=== PATIENT | male | born 1980 | race Caucasian/White ===

== ENCOUNTER 2019-05-15 11:27 | Emergency (ER) | payer OTHER, SELFPAY ==
--- NOTE | ~2019-05-15 | XR_ITS ---
EXAMINATION: XR chest 2V EXAM DATE: 05/15/2019 12:24 INDICATION: Cough and congestion. TECHNIQUE: Frontal and lateral projections of the chest obtained and reviewed. There is no prior anita dy for comparison. FINDINGS: The lungs are clear. There are no pleural effusions. The cardiomediastinal silhouette is within normal limits. There is no pneumothorax suspected. The bones and soft tissues are unremarkab le. IMPRESSION: No acute cardiopulmonary findings. Reviewed, dictated and finalized at location B. [facility] [employer]
[2019-05-15 11:57] VITALS: BP 154/96; PULSE 77; RESP 18; TEMP 36.9; O2SAT 98
--- NOTE | 2019-05-15 12:01 | ED.URI ---
HPI - URI/Sore Throat General Chief Complaint: Upper Respiratory Infection Stated Complaint: Cold/Flu Time Seen by Provider: 05/15/19 12:01 Source: patient and family History of Present Illness HPI Narrative: Patient presents with continued chest congestion. Patient states he has had his loose congested cough for the past 3 months. Patient states is been treated with antibiotics in steroids. Patient is worried that he might have pneumonia. Patient denies any shortness of breath no chest pain. Patient states he had asthma as a child and is a non-smoker. MD elicited complaint: cough Related Data Home Medications Medication Instructions Recorded Confirmed metoprolol succinate 100 mg PO DAILY 04/12/19 04/12/19 venlafaxine [Effexor XR] 75 mg PO DAILY 04/12/19 04/12/19 Allergies Allergy/AdvReac Type Severity Reaction Status Date / Time egg Allergy Unknown Unknown Verified 04/12/19 16:13 Review of Systems Review of Systems: Narrative: CONSTITUTIONAL: Denies fever, chills, or sweats. EYES: Denies visual changes, redness, or discharge. ENT: Denies sore throat, or otalgia. CARDIOVASCULAR: Denies chest pain, palpitations, or edema. RESPIRATORY: Denies dyspnea. Loose congested cough GASTROINTESTINAL: Denies abdominal pain, nausea, vomiting, or diarrhea. GENITOURINARY: Denies dysuria or hematuria. SKIN: Denies rash or itching. MUSCULOSKELETAL: Denies back pain, joint pain, or myalgia. NEUROLOGIC: Denies headache, numbness, or weakness. PSYCHIATRIC: Denies anxiety or depression. All systems reviewed & are unremarkable except as noted in HPI and below PMFSH Comments At time of signature, agree with nursing past medical, surgical, social and family history. There is no relevant family history pertinent to the presenting complaint Exam Narrative: Exam Narrative: GENERAL: Well-appearing, well-nourished, and in no acute distress. HEAD: Normocephalic, atraumatic. EYES: PERRLA and EOMI. ENT: Nares clear, no rhinorrhea or epistaxis. Mucous membranes moist. NECK: Supple. CHEST: Clear to auscultation. No respiratory distress. HEART: Regular rate and rhythm. No murmur heard. Normal peripheral pulses. ABDOMEN: Soft, nontender, nondistended, normal active bowel sounds. EXTREMITIES: Normal range of motion. No edema. SKIN: Warm, dry, no rash. NEURO: No focal deficits. Alert and oriented x3. Minnie Coma Scale Eye Opening: Spontaneous 4 [place] Coma Scale Motor: Obeys Commands 6 [place] Coma Scale Verbal: Oriented 5 Minnie Coma Scale Total 15 Course Vital Signs Vital signs: Vital Signs Temperature 36.9 C 05/15/19 11:57 Pulse Rate 77 05/15/19 11:57 Respiratory Rate 18 05/15/19 11:57 Blood Pressure 154/96 H 05/15/19 11:57 Pulse Oximetry 98 05/15/19 11:57 Temperature 36.9 C 05/15/19 11:57 Pulse Rate 77 05/15/19 11:57 Respiratory Rate 18 05/15/19 11:57 Blood Pressure 154/96 H 05/15/19 11:57 Pulse Oximetry 98 05/15/19 11:57 Please NATHALIE schedule a followup visit with your personal physician for further evaluation and treatment. Including recheck and discussion of your blood pressure. If your symptoms persist, change or worsen significantly before you can contact your personal physician then please, without delay, go to the emergency department for further evaluation MDM - URI/Sore Throat Differential Diagnosis Differential diagnosis: Likely upper respiratory infection, sinusitis and bronchitis Imaging Data Attestation: I personally reviewed and interpreted this imaging study as follows: My impression: No acute cardiopulmonary findings Radiologist's impression: No acute cardiopulmonary findings Critical Care Time Critical Care Time Critical Care Time: No Discharge Plan Discharge Clinical Impression: Bronchitis Upper respiratory infection Qualifiers: URI type: unspecified viral URI Qualified Code(s): J06.9 - Acute upper respiratory infection, unspecified Patient Disposition: Home,
== END 2019-05-15 12:45 | disposition home or self-care (01) ==
PROVIDERS: Emergency Provider Nurse Practitioner Family
DX: J40 Bronchitis, not specified as acute or chronic (principal); J06.9 Acute upper respiratory infection, unspecified
CPT/HCPCS: 71046; 99213; G0463

== ENCOUNTER 2020-05-22 08:17 | Emergency (ER) | payer OTHER, SELFPAY ==
[2020-05-22 08:50] VITALS: BP 120/82; PULSE 97; RESP 20; TEMP 36.9; O2SAT 97
--- NOTE | 2020-05-22 09:32 | ED.URI ---
HPI - URI/Sore Throat General Chief Complaint: Upper Respiratory Infection Stated Complaint: sore throat sinus diarrhea Time Seen by Provider: 05/22/20 09:32 Source: patient Mode of arrival: ambulatory Limitations: no limitations History of Present Illness HPI Narrative: Hugo Cruz is a 40 yo male with PMH of depression and HTN who comes to [facility] with complaints of sore throat that started last 2 to 3 days it is worsened he has a history of large tonsils and strep-states he is not been around people at work as he works by himself and wears a mask if anyone comes into his office Related Data Home Medications Medication Instructions Recorded Confirmed metoprolol succinate 100 mg PO DAILY 04/12/19 05/15/19 venlafaxine [Effexor XR] 75 mg PO DAILY 04/12/19 05/15/19 Allergies Allergy/AdvReac Type Severity Reaction Status Date / Time egg Allergy Unknown Unknown Verified 05/22/20 09:06 Review of Systems Review of Systems: Narrative: CONSTITUTIONAL: Denies fever, chills, sweats. EYES: Denies visual changes, redness, discharge. ENT: Denies rhinorrhea, mild congestion, has sore throat, otalgia. CARDIOVASCULAR: Denies chest pain, palpitations, edema. RESPIRATORY: Denies dyspnea, wheezing, cough GASTROINTESTINAL: Denies abdominal pain, nausea, vomiting, diarrhea. GENITOURINARY: Denies dysuria, hematuria, abnormal discharge SKIN: Denies rash or itching. NEUROLOGIC: Denies numbness, or focal weakness. PSYCHIATRIC: Denies anxiety or depression. PMFSH Past Medical History Medical History Depression Hypertension Family History Family History Other No acute medical problems Social History Social History (Updated 05/22/20 @ 09:35 by Courtney Lopez CNP) Smoking status: Never smoker Alcohol intake: current Comments At time of signature, I agree with nursing past medical, surgical, social and family history. There is no relevant family history pertinent to the presenting complaint. Exam Narrative: Exam Narrative: GENERAL: This is a well-nourished, well-developed patient, in mild distress. HEAD: normocephalic, atraumatic. EYES: Sclera clear/white. Vision is grossly intact. EARS: External ears normal, auditory canals clear and without drainage, TMs normal without perforation. Hearing grossly intact. NOSE: External nose normal with nasal discharge, nares without redness, no rhinorrhea. THROAT: Mucous membranes moist, posterior pharynx erythema with 2+ edema of tonsils NECK: Neck supple, non-tender CARDIOVASCULAR: Regular rate and rhythm without murmurs, gallops, or rubs. RESPIRATORY: Clear to auscultation. Breath sounds equal bilaterally. No wheezes, rales, or rhonchi. GASTROINTESTINAL: Abdomen soft, non-tender, SKIN: warm, intact with no suspicious lesions or rash, good texture and turgor. NEURO: awake, alert, and oriented to person, place and time. There were no obvious focal neurologic abnormalities. Steady gait EXTREMITIES: Normal range of motion. BACK: Nontender without deformity Course Course Emergency Course: Patient comes to express care with with sore throat and nasal congestion x3 days it is worsened over the last 2 days Strep test neg and Covid test neg Mucinex and prednisone for tonsils and general sinus drainage Patient given instructions on hydration Work excuse Vital Signs Vital signs: Vital Signs Temperature 98.5 F 05/22/20 08:50 Pulse Rate 97 05/22/20 08:50 Respiratory Rate 20 05/22/20 08:50 Blood Pressure 120/82 05/22/20 08:50 Pulse Oximetry 97 05/22/20 08:50 Temperature 98.5 F 05/22/20 08:50 Pulse Rate 97 05/22/20 08:50 Respiratory Rate 20 05/22/20 08:50 Blood Pressure 120/82 05/22/20 08:50 Pulse Oximetry 97 05/22/20 08:50 MDM - URI/Sore Throat Differential Diagnosis Differential diagnosis: Likely upper respiratory inf
== END 2020-05-22 09:55 | disposition home or self-care (01) ==
PROVIDERS: Emergency Provider Nurse Practitioner
DX: J02.9 Acute pharyngitis, unspecified (principal); Z20.822 Contact with and (suspected) exposure to COVID-19; I10 Essential (primary) hypertension; F32.9 Major depressive disorder, single episode, unspecified
CPT/HCPCS: 87081; 87426; 87880; 99213; C9803; G0463

== ENCOUNTER 2021-01-16 09:23 | Emergency (ER) | payer OTHER, SELFPAY ==
[2021-01-16 10:06] VITALS: BP 118/71; PULSE 68; RESP 14; TEMP 36.6; O2SAT 98
--- NOTE | 2021-01-16 10:52 | ED.URI ---
HPI - URI/Sore Throat General Chief Complaint: Upper Respiratory Infection Stated Complaint: runny nose and eye drainage Time Seen by Provider: 01/16/21 10:53 Source: patient, family, RN notes reviewed and old records reviewed Mode of arrival: ambulatory Limitations: no limitations History of Present Illness HPI Narrative: 40-year-old male presents to [facility] with 1 month duration of sinus pressure, congestion and drainage with symptoms increasing in the past week. Patient also has some crusting drainage to bilateral eyes which just started this morning. Patient denies any sore throat, ear pain, acute cough of any known fevers chills or sweats. Patient states that he has taken some OTC sinus medications with no improvement.Patient does have sleep apnea and wears C-PAP, He has not had COVID vaccinations. MD elicited complaint: rhinorrhea, nasal congestion, sinus pain and other (Sinus pressure forhead, bilateral eye redness with drainage) Pertinent past history: sinusitis and other (sleep apnea) Related Data Home Medications Medication Instructions Recorded Confirmed atorvastatin 20 mg PO DAILY 05/22/20 01/16/21 metformin 500 mg PO DAILY 05/22/20 01/16/21 metoprolol tartrate 100 mg PO DAILY 05/22/20 01/16/21 ergocalciferol (vitamin D2) 1,250 mcg PO WEEKLY 01/16/21 01/16/21 [Vitamin D2] hydrochlorothiazide 25 mg PO DAILY 01/16/21 01/16/21 venlafaxine [Effexor] 100 mg PO DAILY 01/16/21 01/16/21 vitamin B complex [B 1 tablet PO DAILY 01/16/21 01/16/21 Complex-Vitamin B12] Allergies Allergy/AdvReac Type Severity Reaction Status Date / Time No Known Allergies Allergy Verified 01/16/21 10:20 Review of Systems Review of Systems: CONSTITUTIONAL: Denies fever, chills, or sweats. EYES: Denies visual changes, positive for bilateral eye redness, or discharge. ENT: Positive rhinorrhea, congestion, no sore throat, or otalgia. CARDIOVASCULAR: Denies chest pain, palpitations, or edema. RESPIRATORY: Denies acute cough or dyspnea. GASTROINTESTINAL: Denies abdominal pain, nausea, vomiting, or diarrhea. GENITOURINARY: Denies dysuria or hematuria. SKIN: Denies rash or itching. MUSCULOSKELETAL: Denies back pain, joint pain, or myalgia. NEUROLOGIC: Positive for headache, no numbness, or weakness. PSYCHIATRIC: Positive history of anxiety or depression. All systems reviewed & are unremarkable except as noted in HPI and below PMFSH Past Medical History Medical History (Updated 01/19/21 @ 12:51 by Katie Martin NP) Bronchitis Depression Diabetes Elevated cholesterol GERD (gastroesophageal reflux disease) Hypertension VENESSA (obstructive sleep apnea) Sinusitis Surgical History Surgical History (Updated 01/16/21 @ 11:09 by Katie Martin NP) H/O sinus surgery History of lumbar fusion Family History Family History Other No acute medical problems Social History Social History (Updated 01/19/21 @ 12:51 by Katie Martin NP) Smoking status: Never smoker Alcohol intake: current Substance use: never Living arrangements: with family Gender identity (if verbalized by the patient): Male Comments At time of signature, agree with nursing past medical, surgical, social and family history. There is no relevant family history pertinent to the presenting complaint Exam Narrative: GENERAL: Well-appearing, well-nourished, and in no acute distress. HEAD: Normocephalic, atraumatic. EYES: PERRLA and EOMI.Bilateral conjunctiva redness with yellow crusting to eyelashes, denies pain or acute itching. ENT: Nares red and turbinates swollen, clear rhinorrhea no epistaxis,facial sinus pressure Mucous membranes moist.TM's normal with good light reflex, throat ith mild redness no lesions or exudates no tonsil enlargement post nasal drainage present. NECK: Supple.no lymphadenopathy CHEST: Clear to auscultation. No respiratory distress.dry cough SSAO2 98% on room air HEAR
== END 2021-01-16 11:20 | disposition home or self-care (01) ==
PROVIDERS: Emergency Provider Registered Nurse; PCP Family Medicine
DX: J01.90 Acute sinusitis, unspecified (principal); E11.9 Type 2 diabetes mellitus without complications; E78.00 Pure hypercholesterolemia, unspecified; K21.9 Gastro-esophageal reflux disease without esophagitis; I10 Essential (primary) hypertension; G47.33 Obstructive sleep apnea (adult) (pediatric); F32.9 Major depressive disorder, single episode, unspecified
CPT/HCPCS: 99213; G0463

== ENCOUNTER 2021-12-08 08:43 | Emergency (ER) | payer OTHER, SELFPAY ==
[2021-12-08 08:50] VITALS: BP 128/76; PULSE 68; RESP 20; TEMP 36.5; O2SAT 100
--- NOTE | 2021-12-08 09:14 | ED.DIZZY ---
HPI - Dizziness General Chief Complaint: Dizziness Stated Complaint: Dizziness Time Seen by Provider: 12/08/21 09:00 Source: patient Mode of arrival: ambulatory Limitations: no limitations History of Present Illness HPI Narrative: Mr. Cruz is a 41-year-old male patient presenting to the clinic today with complaints of dizziness. He reports that he has some discomfort to the back of his neck. He reports this been going on for about 3 to 4 days. States that he just feels unsteady on his feet. He denies any headache, chest pain or shortness of breath. Has a history of hypertension but his blood pressure is 128/76 in the clinic today. He is diabetic but his blood sugar was 125 at home. He denies any fever or chills. He denies any sore throat or nasal congestion. Related Data Home Medications Medication Instructions Recorded Confirmed atorvastatin 20 mg tablet 20 mg PO DAILY 05/22/20 12/08/21 metformin 500 mg tablet 500 mg PO DAILY 05/22/20 12/08/21 metoprolol tartrate 100 mg tablet 100 mg PO DAILY 05/22/20 12/08/21 ergocalciferol (vitamin D2) 1,250 1,250 mcg PO WEEKLY 01/16/21 12/08/21 mcg (50,000 unit) capsule (Vitamin D2) hydrochlorothiazide 25 mg tablet 25 mg PO DAILY 01/16/21 12/08/21 venlafaxine 100 mg tablet 100 mg PO DAILY 01/16/21 12/08/21 vitamin B complex (B 1 tablet PO DAILY 01/16/21 12/08/21 Complex-Vitamin B12 tablet) Allergies Allergy/AdvReac Type Severity Reaction Status Date / Time No Known Allergies Allergy Verified 12/08/21 09:03 Review of Systems Review of Systems: Pertinent positives per HPI. Patient denies any fever, chills, rash, headache, visual changes,cough, runny nose, sore throat, shortness of breath, chest pain, palpitations, nausea, vomiting, diarrhea, constipation, abdominal pain, or any urinary issues. [facility] Past Medical History Medical History Bronchitis Depression Diabetes Elevated cholesterol GERD (gastroesophageal reflux disease) Hypertension VENESSA (obstructive sleep apnea) Sinusitis Surgical History Surgical History H/O sinus surgery History of lumbar fusion Family History Family History Other No acute medical problems Social History Social History Smoking status: Never smoker Alcohol intake: current Substance use: never Gender identity (if verbalized by the patient): Male Comments At the time of my signature, I reviewed and agree with the nursing past medical, surgical, social, and family history. There is no relevant family history pertinent to the patient complaint. Exam Narrative: General: Well-developed, well nourished, in no apparent distress Head: Normocephalic, atraumatic Eyes: Pupils equally round and reactive to light bilaterally, EOM intact, sclera and conjunctive clear, no discharge, lids normal, no nystagmus Ears: TMs intact and clear with mild bulging, ear canals clear, no drainage, grossly hearing normal. Nose: Nares patent, no discharge, no inflammation, no sinus tenderness. Mouth: Oropharynx without lesions or masses, good dentition, MMM. Neck: Supple, trachea midline, no enlargement of anterior or posterior cervical nodes, no thyroid masses or goiter palpable. Cardio: Regular rate and rhythm, s1 and s2 normal, no murmur appreciated. Resp: Clear to auscultation bilaterally anteriorly and posteriorly, no rhonchi, rales, wheezing or rubs as clear Musculoskeletal: No deformity, non-tender to palpation, grossly normal range of motion, muscle strength strong and equal, peripheral pulse strong, no edema, no cyanosis, normal gait and station Neuro: Cranial nerves I through XII intact, alert and oriented x4, Romberg test negative, sensation intact Course Course Emergency Cou
== END 2021-12-08 09:20 | disposition home or self-care (01) ==
PROVIDERS: Emergency Provider Nurse Practitioner Family; PCP Family Medicine
DX: H69.93 Unspecified Eustachian tube disorder, bilateral (principal); R42 Dizziness and giddiness; E11.9 Type 2 diabetes mellitus without complications; E78.00 Pure hypercholesterolemia, unspecified; K21.9 Gastro-esophageal reflux disease without esophagitis; I10 Essential (primary) hypertension; G47.33 Obstructive sleep apnea (adult) (pediatric); F32.A Depression, unspecified
CPT/HCPCS: 99213; G0463

== ENCOUNTER 2021-12-25 13:45 | Emergency (ER) | payer OTHER, SELFPAY ==
[2021-12-25 14:04] VITALS: BP 124/88; PULSE 82; RESP 16; TEMP 36.8; O2SAT 97
--- NOTE | 2021-12-25 14:39 | ED.URI ---
HPI - URI/Sore Throat General Chief Complaint: Upper Respiratory Infection Stated Complaint: sore throat Time Seen by Provider: 12/25/21 14:39 History of Present Illness HPI Narrative: 41-year-old male presented for c/o white patch noted in the back of his throat just prior to arrival. He denies significant pain but states he wanted to be evaluated so as not to spread infection this weekend. Patient states he recently completed a steroid for fluid in his ears. Continues to endorse mild sinus drainage. Denies nausea, vomiting, fevers or chills. Related Data Home Medications Medication Instructions Recorded Confirmed atorvastatin 20 mg tablet 20 mg PO DAILY 05/22/20 12/25/21 metformin 500 mg tablet 500 mg PO BID 05/22/20 12/25/21 metoprolol tartrate 100 mg tablet 100 mg PO DAILY 05/22/20 12/25/21 ergocalciferol (vitamin D2) 1,250 1,250 mcg PO WEEKLY 01/16/21 12/25/21 mcg (50,000 unit) capsule (Vitamin D2) hydrochlorothiazide 25 mg tablet 25 mg PO DAILY 01/16/21 12/25/21 venlafaxine 100 mg tablet 100 mg PO DAILY 01/16/21 12/25/21 vitamin B complex (B 1 tablet PO DAILY 01/16/21 12/25/21 Complex-Vitamin B12 tablet) Allergies Allergy/AdvReac Type Severity Reaction Status Date / Time No Known Allergies Allergy Verified 12/25/21 14:12 Review of Systems Review of Systems: CONSTITUTIONAL: Denies body aches, fever, chills, or sweats. EYES: Denies visual changes, redness, or discharge. ENT: Denies rhinorrhea, congestion, or otalgia. CARDIOVASCULAR: Denies chest pain, palpitations, or edema. RESPIRATORY: Denies dyspnea. GASTROINTESTINAL: Denies abdominal pain, nausea, vomiting, or diarrhea. SKIN: Denies rash, itching, or wounds. MUSCULOSKELETAL: Denies back pain, joint pain, or myalgia. NEUROLOGIC: Denies headache PMFSH Past Medical History Medical History Bronchitis Depression Diabetes Elevated cholesterol GERD (gastroesophageal reflux disease) Hypertension VENESSA (obstructive sleep apnea) Sinusitis Surgical History Surgical History H/O sinus surgery History of lumbar fusion Family History Family History Other No acute medical problems Social History Social History Smoking status: Never smoker Alcohol intake: current Substance use: never Gender identity (if verbalized by the patient): Male Exam Narrative: GENERAL: well-appearing EYES: conjunctivae clear ENT: Mucous membranes moist. TMs pearly dover with normal light reflex bilaterally; no tragal tenderness. Oropharynx erythematous without lesions. Tonsils enlarged and without exudate. No drooling, no hoarseness, no trismus, uvula midline. No tripod positioning, hot potato voice, or soft palate swelling. NECK: Supple. No lymphadenopathy CHEST: Clear to auscultation, breath sounds equal. HEART: Regular rate and rhythm. No murmur heard. SKIN: Warm, dry, no rash. NEURO: Alert and oriented x3. Course Course Emergency Course: Patient is aware of diagnosis, understands and agrees to treatment plan. Anticipatory guidance given. Patient agrees to follow-up as directed and is aware of reasons to seek care at the emergency department. Portions of this record may have been created with voice recognition software Level of Care: Express Care Visit Vital Signs Vital signs: Vital Signs Temperature 98.3 F 12/25/21 14:04 Pulse Rate 82 12/25/21 14:04 Respiratory Rate 16 12/25/21 14:04 Blood Pressure 124/88 12/25/21 14:04 Pulse Oximetry 97 12/25/21 14:04 Oxygen Delivery Room Air 12/25/21 14:04 Temperature 98.3 F 12/25/21 14:04 Pulse Rate 82 12/25/21 14:04 Respiratory Rate 16 12/25/21 14:04 Blood Pressure 124/88 12/25/21 14:04 Pulse Oximetry 97 12/25/21 14:04 Oxygen Deliver
== END 2021-12-25 14:47 | disposition home or self-care (01) ==
PROVIDERS: Emergency Provider Nurse Practitioner Family; PCP Family Medicine
DX: J02.9 Acute pharyngitis, unspecified (principal); E11.9 Type 2 diabetes mellitus without complications; E78.00 Pure hypercholesterolemia, unspecified; K21.9 Gastro-esophageal reflux disease without esophagitis; I10 Essential (primary) hypertension; G47.33 Obstructive sleep apnea (adult) (pediatric); F32.A Depression, unspecified; Z79.84 Long term (current) use of oral hypoglycemic drugs
CPT/HCPCS: 87081; 87880; 99213; G0463

== ENCOUNTER 2022-04-17 15:02 | Emergency (ER) | payer OTHER, SELFPAY ==
[2022-04-17 15:10] VITALS: BP 128/70; PULSE 91; RESP 16; TEMP 36.4; O2SAT 97
--- NOTE | 2022-04-17 15:53 | ED.URI ---
HPI - URI/Sore Throat General Chief Complaint: Upper Respiratory Infection Stated Complaint: cold flu Time Seen by Provider: 04/17/22 15:50 Source: patient, RN notes reviewed and old records reviewed Mode of arrival: ambulatory Limitations: no limitations History of Present Illness HPI Narrative: 42-year-old male who presents to [facility] with complaints of one day history of cough with congestion and profuse diarrhea. Patient reports that he had to come home from work due to diarrhea, Patient reports that he has not had any fevers, did have chills earlier in the day and had some body aches. Patient reports that he did have COVID immunizations X2 no booster and has not had flu shot. Patient denies any abdominal pain. MD elicited complaint: cough (congestion) and other (diarrhea) Onset (ago): day(s) (1) Treatments prior to arrival: none Related Data Home Medications Medication Instructions Recorded Confirmed atorvastatin 20 mg tablet 20 mg PO DAILY 05/22/20 12/25/21 metformin 500 mg tablet 500 mg PO BID 05/22/20 12/25/21 metoprolol tartrate 100 mg tablet 100 mg PO DAILY 05/22/20 12/25/21 ergocalciferol (vitamin D2) 1,250 1,250 mcg PO WEEKLY 01/16/21 12/25/21 mcg (50,000 unit) capsule (Vitamin D2) hydrochlorothiazide 25 mg tablet 25 mg PO DAILY 01/16/21 12/25/21 venlafaxine 100 mg tablet 100 mg PO DAILY 01/16/21 12/25/21 vitamin B complex (B 1 tablet PO DAILY 01/16/21 12/25/21 Complex-Vitamin B12 tablet) Allergies Allergy/AdvReac Type Severity Reaction Status Date / Time No Known Allergies Allergy Verified 12/25/21 14:12 Review of Systems Review of Systems: CONSTITUTIONAL:reports malaise, reports chills, sweats, no fever. EYES: Denies visual changes, redness, or discharge. ENT: Reports rhinorrhea, congestion,no sinus pain,no otalgia no sore throat. CARDIOVASCULAR: Denies chest pain, palpitations, or edema. RESPIRATORY: Reports cough with some congestion Denies dyspnea. GASTROINTESTINAL: Denies abdominal pain, nausea, vomiting, positive for diarrhea SKIN: Denies rash or itching. MUSCULOSKELETAL:Reports myalgia. NEUROLOGIC: Denies headache. All systems reviewed & are unremarkable except as noted in HPI and below PMFSH Past Medical History Medical History Bronchitis Depression Diabetes Elevated cholesterol GERD (gastroesophageal reflux disease) Hypertension VENESSA (obstructive sleep apnea) Sinusitis Surgical History Surgical History H/O sinus surgery History of lumbar fusion Family History Family History Other No acute medical problems Social History Social History Smoking status: Never smoker Alcohol intake: current Substance use: never Gender identity (if verbalized by the patient): Male Comments At time of signature, agree with nursing past medical, surgical, social and family history. There is no relevant family history pertinent to the presenting complaint Exam Narrative: GENERAL: Well-appearing, well-nourished, and in no acute distress. HEAD: Normocephalic EYES: PERRLA, conjunctivae clear ENT: Nares clear, turbinates edematous and erythematous, clear discharge. Mucous membranes moist. TM pearly dover with dull light reflex bilaterally; no tragal tenderness. Oropharynx erythematous without lesions. Tonsils not enlarged and without exudate, no drooling, no hoarseness, no trismus, uvula midline. NECK: Supple. No lymphadenopathy CHEST: Clear to auscultation, breath sounds equal. No wheezing, rhonchi, rales, or stridor. No respiratory distress, speaks in full sentences.cough, SAO2 97% on room air Abdomen: soft and nontender to palpation, no bloating, no McBurney point tenderness, hyper active bowel sounds, no ridigity. HEART: Regular rate an
== END 2022-04-17 16:35 | disposition home or self-care (01) ==
PROVIDERS: Emergency Provider Registered Nurse; PCP Family Medicine
DX: B34.9 Viral infection, unspecified (principal); E11.9 Type 2 diabetes mellitus without complications; Z79.84 Long term (current) use of oral hypoglycemic drugs; E78.00 Pure hypercholesterolemia, unspecified; K21.9 Gastro-esophageal reflux disease without esophagitis; I10 Essential (primary) hypertension; F32.A Depression, unspecified
CPT/HCPCS: 87804; 99213; G0463

== ENCOUNTER 2023-01-03 18:44 | Emergency (ER) | payer OTHER, SELFPAY ==
[2023-01-03 18:50] VITALS: BP 154/87; PULSE 110; RESP 20; TEMP 38.5; O2SAT 97
--- NOTE | 2023-01-03 19:37 | ED.URI ---
HPI - URI/Sore Throat General Chief Complaint: Upper Respiratory Infection Stated Complaint: Fever/Congestion Time Seen by Provider: 01/03/23 19:37 Source: patient, RN notes reviewed and old records reviewed Mode of arrival: ambulatory Limitations: no limitations History of Present Illness HPI Narrative: 42-year-old male presents to [facility] with 2 day history of of headaches, fevers, and cough states daughter had strep last week, also has complaints of some sore throat. Patient denies his throat being very sore mainly dry raspy.Patient reports that he took Coricidin medication and does feel a little better today but continues with congestion, sough and some fevers.Patient denies any shortness of breath or any wheezing, is non-smoker. Patient reports shira he has some generalized achiness ,reports fully vaccinated for COVID. MD elicited complaint: cough and sore throat Onset (ago): day(s) (2) Pain scale (0-10): 4 Able to tolerate fluids by mouth: Yes Treatments prior to arrival: cold medicine Related Data Home Medications Medication Instructions Recorded Confirmed atorvastatin 20 mg tablet 20 mg PO DAILY 05/22/20 12/25/21 metformin 500 mg tablet 500 mg PO BID 05/22/20 12/25/21 metoprolol tartrate 100 mg tablet 100 mg PO DAILY 05/22/20 12/25/21 ergocalciferol (vitamin D2) 1,250 1,250 mcg PO WEEKLY 01/16/21 12/25/21 mcg (50,000 unit) capsule (Vitamin D2) hydrochlorothiazide 25 mg tablet 25 mg PO DAILY 01/16/21 12/25/21 venlafaxine 100 mg tablet 100 mg PO DAILY 01/16/21 12/25/21 vitamin B complex (B 1 tablet PO DAILY 01/16/21 12/25/21 Complex-Vitamin B12 tablet) Allergies Allergy/AdvReac Type Severity Reaction Status Date / Time No Known Allergies Allergy Verified 12/25/21 14:12 Review of Systems Review of Systems: CONSTITUTIONAL:Reports malaise, chills, sweats, or fever. EYES: Denies visual changes, redness, or discharge. ENT: Reports rhinorrhea, congestion, no sinus pain,no otalgia denies acute sore throat. CARDIOVASCULAR: Denies chest pain, palpitations, or edema. RESPIRATORY: Reports cough.? Denies dyspnea. GASTROINTESTINAL: Denies abdominal pain, nausea, vomiting, diarrhea SKIN: Denies rash or itching. MUSCULOSKELETAL:Reports myalgia. NEUROLOGIC:Reports headache. All systems reviewed & are unremarkable except as noted in HPI and below PMFSH Past Medical History Medical History Bronchitis Depression Diabetes Elevated cholesterol GERD (gastroesophageal reflux disease) Hypertension VENESSA (obstructive sleep apnea) Sinusitis Surgical History Surgical History H/O sinus surgery History of lumbar fusion Family History Family History Other No acute medical problems Social History Social History Smoking status: Never smoker Alcohol intake: current Substance use: never Living arrangements: with family Gender identity (if verbalized by the patient): Male Comments At time of signature, agree with nursing past medical, surgical, social and family history. There is no relevant family history pertinent to the presenting complaint Exam Narrative: GENERAL: Well-appearing, well-nourished, and in no acute distress. HEAD: Normocephalic EYES: PERRLA, conjunctivae clear ENT: Nares clear, turbinates edematous and erythematous, clear discharge. Mucous membranes moist. TM pearly dover with dull light reflex bilaterally; no tragal tenderness. Oropharynx erythematous without lesions. Tonsils not enlarged and without exudate, no drooling, no hoarseness, no trismus, uvula midline. NECK: Supple. No lymphadenopathy CHEST: Clear to auscultation, breath sounds equal. No wheezing, rhonchi, rales, or stridor. No respiratory distress, speaks in full sentence
== END 2023-01-03 20:16 | disposition home or self-care (01) ==
PROVIDERS: Emergency Provider Registered Nurse; PCP Family Medicine
DX: J06.9 Acute upper respiratory infection, unspecified (principal); Z20.822 Contact with and (suspected) exposure to COVID-19; E11.9 Type 2 diabetes mellitus without complications; Z79.84 Long term (current) use of oral hypoglycemic drugs; E78.00 Pure hypercholesterolemia, unspecified; K21.9 Gastro-esophageal reflux disease without esophagitis; I10 Essential (primary) hypertension; F32.A Depression, unspecified
CPT/HCPCS: 87081; 87426; 87880; 99213; C9803; G0463

== ENCOUNTER 2024-10-10 08:52 | Emergency (ER) | payer OTHER, SELFPAY ==
--- NOTE | ~2024-10-10 | XR_ITS ---
EXAMINATION: XR chest 2V DATE: 10/10/2024 09:23 INDICATION: Productive cough TECHNIQUE: PA and lateral views of the chest were obtained. COMPARISON: Chest radiograph dated 05/15/2019 FINDINGS: The lungs remain clear with no focal airspace opacities, pulmonary edema, pleural effusion or pneumot horax. The cardiomediastinal silhouette is normal. Chronic mild anterior wedging at T11. IMPRESSION: 1. No acute cardiopulmonary disease. Reviewed, dictated and finalized at location A.
[2024-10-10 08:59] VITALS: BP 138/83; PULSE 112; RESP 18; TEMP 36.3; O2SAT 99
--- NOTE | 2024-10-10 08:59 | ED_ITS ---
HPI - URI/Sore Throat General Chief Complaint: Upper Respiratory Infection Stated Complaint: Poss sinus infection/drainage Time Seen by Provider: 10/10/24 09:06 Source: patient Mode of arrival: ambulatory Limitations: no limitations History of Present Illness HPI Narrative: 44-year-old male presents with complaint of nasal congestion, sinus pressure, postnasal drainage, sore throat, cough for 5-6 days rib. Reports coughing up yellow sputum. Reports chest discomfort to right side when taking deep breath. No shortness breath. Also reports joint pain to wrist ankles. Afebrile. Took a course heat and yesterday other than that not taking any [id number] medications to treat his symptoms. Patient is well-appearing, talkative and smiling. Prior to the symptoms patient reports that he has had some allergy like symptoms. all systems reviewed and negative except as noted above. Related Data Home Medications ?Medication ?Instructions ?Recorded ?Confirmed ?Last Taken ?Type atorvastatin 20 mg tablet 20 mg PO DAILY 05/22/20 12/25/21 Unknown History metformin 500 mg tablet 500 mg PO BID 05/22/20 12/25/21 Unknown History metoprolol tartrate 100 mg tablet 100 mg PO DAILY 05/22/20 12/25/21 Unknown History ergocalciferol (vitamin D2) 1,250 1,250 mcg PO WEEKLY 01/16/21 12/25/21 Unknown History mcg (50,000 unit) capsule (Vitamin D2) hydrochlorothiazide 25 mg tablet 25 mg PO DAILY 01/16/21 12/25/21 Unknown History venlafaxine 100 mg tablet 100 mg PO DAILY 01/16/21 10/10/24 Unknown History vitamin B complex (B 1 tablet PO DAILY 01/16/21 12/25/21 Unknown History Complex-Vitamin B12 tablet) semaglutide 2 mg/dose (8 mg/3 mL) mg subcut 10/10/24 Unknown History subcutaneous pen injector (Ozempic) triamterene 37.5 tablet 10/10/24 Unknown History mg-hydrochlorothiazide 25 mg tablet venlafaxine 150 mg mg PO 10/10/24 Unknown History capsule,extended release 24 hr Allergies Allergy/AdvReac Type Severity Reaction Status Date / Time No Known Allergies Allergy Verified 10/10/24 09:18 Review of Systems Review of Systems: CONSTITUTIONAL: Denies fever, chills, or sweats. EYES: Denies visual changes, redness, or discharge. ENT: Reports rhinorrhea, congestion, sore throat, sinus pressure. Denies otalgia. CARDIOVASCULAR: Denies chest pain, palpitations, or edema. RESPIRATORY: reports cough , sputum production. Denies dyspnea. GASTROINTESTINAL: Denies abdominal pain, nausea, vomiting, or diarrhea. GENITOURINARY: Denies dysuria or hematuria. SKIN: Denies rash or itching. MUSCULOSKELETAL: Denies back pain, joint pain, or myalgia. NEUROLOGIC: Denies headache, numbness, or weakness. PSYCHIATRIC: Denies anxiety or depression. All other systems reviewed are negative, except as documented in HPI. [facility] Past Medical History Medical History Bronchitis Depression Diabetes Elevated cholesterol GERD (gastroesophageal reflux disease) Hypertension VENESSA (obstructive sleep apnea) Sinusitis Surgical History Surgical History H/O sinus surgery History of lumbar fusion Family History Family History Other No acute medical problems Social History Social History Smoking status: Never smoker Alcohol intake: current Substance use: never Living arrangements: with family Gender identity (if verbalized by the patient): Male Comments At time of signature, agree with nursing past medical, surgical, social and family history. There is no relevant family history pertinent to the presenting complaint. Exam Narrative: GENERAL: This is a well-nourished, well-developed patient, in no apparent distress. HEAD: normocephalic, atraumatic. EYES: PERRL. Sclera clear/white. Vision is grossly intact. EARS: External ears normal, auditory canals clear and without drainage, TMs normal without perforation. Hearing grossly intact. NOSE: External nose normal with purulent nasal drainage, erythema to bilateral nares, maxillary sinus tenderness on palpation THROAT: Mucous membranes moist, postnasal drainage without significant erythema, swelling or exudates NECK: Neck supple, non-tender without lymphadenopathy, masses or thyromegaly. CARDIOVASCULAR: Regular rate and rhythm without murmurs, gallops, or rubs. RESPIRATORY: Clear to auscultation. Breath sounds equal bilaterally. No wheezes, rales, or rhonchi. SKIN: warm, Dry, intact with no suspicious lesions or rash, good texture and turgor. NEURO: awake, alert, and oriented to person, place and time. There were no obvious focal neurologic abnormalities. EXTREMITIES: No joint tenderness, effusion, or edema noted. Course Course Level of Care: Express Care Visit Vital Signs Vital signs: Vital Signs Temperature 36.3 C L 10/10/24 08:59 Pulse Rate 112 H 10/10/24 08:59 Respiratory Rate 18 10/10/24 08:59 Blood Pressure 138/83 10/10/24 08:59 Pulse Oximetry 99 10/10/24 08:59 Oxygen Delivery Room Air 10/10/24 08:59 Temperature 36.3 C L 10/10/24 08:59 Pulse Rate 112 H 10/10/24 08:59 Respiratory Rate 18 10/10/24 08:59 Blood Pressure 138/83 10/10/24 08:59 Pulse Oximetry 99 10/10/24 08:59 Oxygen Delivery Room Air 10/10/24 08:59 reviewed MDM - URI/Sore Throat MDM Narrative Medical decision making narrative: will treat patient for bacterial sinusitis due to duration of symptoms and exam findings. Patient is well-appearing, nontoxic. Negative COVID test. Chest x- ray was normal. Patient agrees with plan of care. Differential Diagnosis Differential diagnosis: Likely upper respiratory infection, sinusitis, viral infection, bronchitis and other ( Pneumonia) Lab Data Labs: Lab Results 10/10/24 Range/Units 09:15 POC SARS CoV-2 Ag Negative (Negative) Imaging Data My impression: agree with radiologist Radiologist's impression: EXAMINATION: XR chest 2V DATE: 10/10/2024 09:23 INDICATION: Productive cough TECHNIQUE: PA and lateral views of the chest were obtained. COMPARISON: Chest radiograph dated 05/15/2019 FINDINGS: The lungs remain clear with no focal airspace opacities, pulmonary edema, pleural effusion or pneumothorax. The cardiomediastinal silhouette is normal. Chronic mild anterior wedging at T11. IMPRESSION: 1. No acute cardiopulmonary disease. Discharge Plan Discharge Clinical Impression: Acute bacterial sinusitis Patient Disposition: Home Condition: Stable Instructions: Antibiotic Form, Sinusitis (ED) Additional Instructions: your chest x-ray was normal today. Your COVID test was negative. Continue taking Coricidin cold and Sinus as directed on packaging. Take antibiotic as prescribed until gone. Drink at least 64 oz of water a day. See your doctor if symptoms are not improving. Patient Language: Sinhala Prescriptions: New benzonatate 200 mg capsule 200 mg PO TID PRN (Reason: cough) Qty: 20 0RF amoxicillin 875 mg tablet 875 mg PO Q12H 7 Days Qty: 14 0RF methylprednisolone [Medrol (Emmanuel)] 4 mg tablets,dose pack See Rx Instructions PO .COMPLEX Qty: 21 0RF Rx Instructions: orally per package directions No Action metformin 500 mg tablet 500 mg PO BID atorvastatin 20 mg tablet 20 mg PO DAILY metoprolol tartrate 100 mg tablet 100 mg PO DAILY venlafaxine [Effexor] 100 mg Tablet 100 mg PO DAILY hydrochlorothiazide 25 mg Tablet 25 mg PO DAILY vitamin B complex [B Complex-Vitamin B12] Tablet 1 tablet PO DAILY ergocalciferol (vitamin D2) [Vitamin D2] 1,250 mcg (50,000 unit) Capsule 1,250 mcg PO WEEKLY dicyclomine 20 mg tablet 20 mg PO TID PRN (Reason: abdomen) Qty: 20 0RF venlafaxine 150 mg capsule,extended release 24hr PO triamterene-hydrochlorothiazid 37.5-25 mg tablet Ozempic 2 mg/dose (8 mg/3 mL) pen injector SUBCUT Follow-up/Referrals: Angelia,Bereket Hummel MD [Primary Care Provider] - Time of Disposition: 09:35
[2024-10-10 09:34] LABS: EDCOVIDSCREEN Negative (Negative)
== END 2024-10-10 09:39 | disposition home or self-care (01) ==
PROVIDERS: Emergency Provider Nurse Practitioner Family; PCP Family Medicine
DX: J01.90 Acute sinusitis, unspecified (principal); Z20.822 Contact with and (suspected) exposure to COVID-19; E11.9 Type 2 diabetes mellitus without complications; Z79.84 Long term (current) use of oral hypoglycemic drugs; I10 Essential (primary) hypertension; K21.9 Gastro-esophageal reflux disease without esophagitis; E78.00 Pure hypercholesterolemia, unspecified; F32.A Depression, unspecified
CPT/HCPCS: 71046; 87426; 99213; G0463